=== PATIENT | male | born 1960 | race Caucasian/White ===

== ENCOUNTER → 2018-04-17 | Outpatient (CLI) | payer OTHER ==
[~2018-04-17] VITALS: Ht 172.7 cm; Wt 81.7 kg
[~2018-04-17] MED LIST: ALBUTEROL2.5 MG/31 INH; CENTRUM SILVER1 EAC4 PO; CO Q-10100 MG PO; COREG6.25 MG PO; COZAAR 50 MG TA50 M2 PO; NAPROSYN500 M1 PO; OMEPRAZOLE40 MG PO; SERTRALINE HCL50 MG PO; SIMVASTATIN40 MG PO; SUPER B COMPLE1 EAC2 PO; SYNTHROID137 MC1 PO; VITAMIN B-12500 MCG PO; VITAMIN D-32000 UNIT PO
--- NOTE | ~2018-04-17 | P ---
[facility] [place] [address] PROCEDURE REPORT Name: PRERNATESFAYE Rajan Room #: [facility]#: [id number] Admission: 04/17/18 Attend Phys: Mahesh Osorio MD Discharge: Date of : 56 Report #: [id number] THIS REPORT FOR: //name// CC: CHASITY Pack BRIEF HISTORY: The patient is a 58-year-old male who presents for a screening colonoscopy. His father was diagnosed with colon cancer in his 80s. His mother had colon cancer in her 80s. PREOPERATIVE DIAGNOSIS: Screening colonoscopy. POSTOPERATIVE DIAGNOSES: Flat polyp, proximal ascending colon. MEDICATIONS: Deep sedation with propofol per Anesthesia. SPECIMEN: Flat polyp from proximal ascending colon. ESTIMATED BLOOD LOSS: 3 mL. PROCEDURE: Colonoscopy to cecum and terminal ileum with snare polypectomy. FINDINGS: Prior to propofol sedation, procedure of colonoscopy discussed with the patient as well as potential risks and its complications. He indicates he understands and desires to proceed. DESCRIPTION OF PROCEDURE: With the patient in left lateral decubitus position, digital examination was completed which revealed no abnormalities. Subsequently, the [employer] video colonoscope was introduced in the rectum, advanced under direct vision to the cecum. Done with minimal difficulty. Cecum was identified by the ileocecal valve and the appendiceal orifice. I was able to visualize the distal segment of the terminal ileum, which was inspected and noted to be unremarkable. At that point, the scope was slowly withdrawn and careful circumferential views obtained. The prep was excellent. Mucosa was within normal limits, normal vascular pattern, normal light reflex. As we withdrew the scope, the mucosa was inspected. In the proximal ascending colon, there was an area of adherent mucosa, it was washed away. There was appearance of a flat 5 mm polyp. It was very subtle. It was removed by cold snare polypectomy. Scope was further withdrawn and no additional neoplastic changes were seen. Remainder of the colon was within normal limits. The scope was withdrawn in the rectum. Upon retroflexion, no abnormalities were seen. Scope was withdrawn. The patient tolerated the procedure well. CONDITION OF THE PATIENT UPON DISCHARGE: Following procedure, the patient drowsy, aroused, conversant and will be discharged home when fully ambulatory. [address] [address] PROCEDURE REPORT Name: TESFAYE GRAFF Room #: [facility]#: [id number] Admission: 04/17/18 Attend Phys: Mahesh Osorio MD Discharge: Date of : 56 Report #: [id number] INSTRUCTIONS TO THE PATIENT AND FAMILY AT THE TIME OF DISCHARGE: One polyp identified and removed as described above. We will follow up on the path. Given his family history and finding of flat polyp today, I suggest he return in 5 years for a colonoscopy. He will return to the care of Dr. Chasity Pack and return to see me as needed. Last colonoscopy was 10 years ago. Withdrawal time from the cecum was 13 minutes and 44 seconds. <ELECTRONICALLY SIGNED> By: Mahesh Osorio MD 04/17/18 1645 [id number] Mahesh Osorio MD /nt
--- NOTE | ~2018-04-17 | PATH ---
[facility] [address] [address] [place] [address] PATHOLOGY RPT PROCEDURE Name: MANDATESFAYE CULVER Satinder Room #: [facility].#: [id number] Admission: 04/17/18 Date of : 56 Discharge: Report #: [id number] Path Case #: [id number] [facility] Accession Number: [id number] . 01 Material submitted: . PROXIMAL ASCENDING COLON POLYP . 01 Clinical history: . Pre-OP DX: Screening, family HX colon cancer Post-OP DX: Colon polyp . 02 Diagnosis: Polyp, proximal ascending colon polyp, endoscopic biopsy: - Sessile serrated polyp. - Negative for dysplasia. . (IUV:mml; 04/20/18) QLM/04/20/2018 . 02 Electronically signed: . April Mckeon MD, Pathologist NPI- [id number] . 01 Gross description: . Received in formalin labeled "Tesfaye Toscano, proximal ascending colon polyp," is a 1.2 x 0.4 x 0.4 cm polypoid piece of llamas soft tissue. The margin is inked and the specimen is sectioned perpendicular to the margin and entirely submitted in cassette A1. (TSD; 04/17/2018) TOB/TOB . 02 Pathologist provided ICD-10: K63.5 . 02 CPT . 045515 Performed at: [address], [place] [id number] MD Oscar Martínez MD Phone: [phone] Performed at: [address] [id number] MD April Mckeon MD Phone: [phone]
== END | disposition short-term general hospital (02) ==
LOC: GI 07:22
DX: Z12.11 Encounter for screening for malignant neoplasm of colon (principal); K63.5 Polyp of colon; E78.5 Hyperlipidemia, unspecified; I10 Essential (primary) hypertension; J44.9 Chronic obstructive pulmonary disease, unspecified; E03.9 Hypothyroidism, unspecified; K21.9 Gastro-esophageal reflux disease without esophagitis; F41.9 Anxiety disorder, unspecified; F32.9 Major depressive disorder, single episode, unspecified; Z87.891 Personal history of nicotine dependence; Z95.810 Presence of automatic (implantable) cardiac defibrillator; Z98.890 Other specified postprocedural states; Z90.89 Acquired absence of other organs; Z90.49 Acquired absence of other specified parts of digestive tract; Z88.8 Allergy status to other drugs, medicaments and biological substances; Z79.899 Other long term (current) drug therapy; Z79.51 Long term (current) use of inhaled steroids; Z80.0 Family history of malignant neoplasm of digestive organs
CPT/HCPCS: 62110; 62900